=== PATIENT | male | born 1975 | race Caucasian/White ===

== ENCOUNTER → 2018-04-10 | Outpatient (REF) | payer OTHER ==
[2018-04-12 11:26] LABS: HEPATITIS C VIRUS ABY INDEX 0.1 INDEX (<0.8)
[2018-04-12 11:39] LABS: LDL DIRECT 105 mg/dL (0-99)
== END ==
LOC: M LAB REF 16:15
DX: L81.8 Other specified disorders of pigmentation (principal); E78.2 Mixed hyperlipidemia

== ENCOUNTER → 2018-07-24 | Outpatient (REF) | payer OTHER | LOC: M LAB REF 12:51 | PROVIDERS: ATTEND Nurse Practitioner Adult Health | DX: F52.0 Hypoactive sexual desire disorder (principal); R53.83 Other fatigue ==

== ENCOUNTER → 2018-10-18 | Outpatient (REF) | payer OTHER ==
[2018-10-22 00:06] LABS: Lyme Disease IgG/IgM Antibodie <0.91 ISR (0.00-0.90); Lyme Disease IgM Ab Quantitati <0.80 index (0.00-0.79)
== END ==
LOC: M LAB REF 17:49
PROVIDERS: ATTEND Nurse Practitioner Adult Health
DX: S00.96XA Insect bite (nonvenomous) of unspecified part of head, initial encounter (principal); W57.XXXA Bitten or stung by nonvenomous insect and other nonvenomous arthropods, initial encounter

== ENCOUNTER → 2019-09-03 | Outpatient (REF) | payer OTHER | LOC: M LAB REF 12:22 | PROVIDERS: ATTEND Nurse Practitioner Adult Health | DX: R51 Headache (principal) ==

== ENCOUNTER → 2020-09-10 | Outpatient (REF) | payer OTHER ==
[2020-09-11 20:07] LABS: TESTOSTERONE FREE (DIRECT) 9.3 pg/mL (6.8-21.5)
== END ==
LOC: M LAB REF 12:11
PROVIDERS: ATTEND Nurse Practitioner Adult Health
DX: N52.9 Male erectile dysfunction, unspecified (principal)

== ENCOUNTER → 2024-06-02 | Outpatient (REF) | payer OTHER, BC | LOC: M LAB REF 16:42 | PROVIDERS: ATTEND Physician Assistant Medical | DX: E78.2 Mixed hyperlipidemia (principal) ==

== ENCOUNTER → 2025-03-09 | Outpatient (CLI) | payer BC | LOC: M PLARAD 14:06 | PROVIDERS: ATTEND Student in an Organized Health Care Education/Training Program | DX: C18.3 Malignant neoplasm of hepatic flexure (principal) | CPT/HCPCS: 78815; A9552 ==

== ENCOUNTER → 2025-06-03 | Outpatient (REF) | payer BC ==
[2025-06-05 16:18] LABS: LDL DIRECT 43 mg/dL (<100)
== END ==
LOC: M LAB REF 17:10
PROVIDERS: ATTEND Physician Assistant Medical
DX: E78.2 Mixed hyperlipidemia (principal)